=== PATIENT | female | born 1955 | race Caucasian/White ===

== ENCOUNTER → 2023-06-27 13:01 | Outpatient (REF) | payer MEDICARE, OTHER, SELFPAY | LOC: WDC 13:01 | PROVIDERS: ATTENDING PHYSICIAN Family Medicine | DX: Z12.31 Encounter for screening mammogram for malignant neoplasm of breast (principal); Z78.0 Asymptomatic menopausal state | CPT/HCPCS: 77063; 77067; 77080 ==